=== PATIENT | male | born 1955 | race African-American/Black ===

== ENCOUNTER → 2017-01-28 | Outpatient (CLI) | payer OTHER ==
[2017-01-04 08:47] VITALS: BP 145/96
--- NOTE | 2017-01-28 10:38 | KCIC ---
PROCEDURE MR of the left shoulder HISTORY Left shoulder pain. Injury January 04. COMPARISON None FINDINGS The acromioclavicular joint is mildly degenerative. There are small undersurface osteophytes with slight mass-effect There is a very deep 90 percent linear undersurface tear of the anterior supraspinatus tendon measures 10 mm AP diameter. No retraction. There is a very thin layer of intact overlying bursal tissue. No significant joint effusion. Mild signal identified at the posterosuperior labrum compatible with degeneration and raising the question of a small tear. Biceps tendon intact. No bone lesion or acute fracture. No acute soft tissue injury. No evidence of nerve entrapment or acute muscle pathology. IMPRESSION 1. There is rotator cuff tendinosis with a small deep undersurface tear of the anterior supraspinatus tendon. 2. Superior labral degeneration. Electronically signed by: Fracisco Antoine MD (Jan 28, 2017 10:36:28)
== END | disposition home or self-care (01) ==
LOC: KCIC MRI 08:54
PROVIDERS: ATTEND Family Medicine
DX: M25.512 Pain in left shoulder (principal)
CPT/HCPCS: 73221